=== PATIENT | female | born 1970 | race Caucasian/White ===

== ENCOUNTER 2017-09-09 05:01 | Inpatient (IN) | payer OTHER ==
[2017-09-09 05:44] LABS: URINE MICROSCOPIC INDICATED? YES; URINE SOURCE RANDOM
[2017-09-09 05:53] LABS: URINE BILIRUBIN NEGATIVE (NEGATIVE); URINE BLOOD LARGE (NEGATIVE); URINE GLUCOSE (UA) NEGATIVE (NEGATIVE); URINE KETONE NEGATIVE (NEGATIVE); URINE LEUKOCYTE ESTERASE NEGATIVE (NEGATIVE); URINE NITRATE NEGATIVE (NEGATIVE); URINE PROTEIN 30 mg/dL (NEGATIVE); URINE UROBILINOGEN 0.2 E.U./dL (0.2 - 1.0)
[2017-09-09 06:00] LABS: URINE CLARITY HAZY (CLEAR); URINE COLOR YELLOW
[2017-09-09 06:01] LABS: HEMATOCRIT 28.5 % (41.0-60); HEMOGLOBIN 8.5 gm/dL (12-16); MEAN CORPUSCULAR HEMOGLOBIN 18.3 pg (27.0-31.0); MEAN CORPUSCULAR HGB CONC 29.7 pg (28.0-36.0); MEAN PLATELET VOLUME 8.1 fl; PLATELET COUNT 349 Th/cmm (150-400); RED BLOOD COUNT 4.62 Mil/cmm (3.80-5.10); RED CELL DISTRIBUTION WIDTH 18.7 % (11.5-20.0)
[2017-09-09 06:04] LABS: MEAN CELL VOLUME 61.7 fl (81-100); WHITE BLOOD COUNT 6.5 Th/cmm (4.8-10.8)
[2017-09-09 06:13] LABS: ANION GAP 8.7 (7.0-16.0); BUN - UREA NITROGEN 14 mg/dL (7-25); CALCIUM SERUM 10.4 mg/dL (8.6-10.3); CARBON DIOXIDE 23.6 mEq/L (21.0-31.0); CHLORIDE 110 mEq/L (98-107); CREATININE - SERUM 0.7 mg/dL (0.6-1.2); GFR AFRICAN-AMERICAN > 60.0 ml/min (>90); GFR NON AFRICAN-AMERICAN > 60.0 ml/min; GLUCOSE 117 mg/dL (70-105); POTASSIUM SERUM 4.3 mEq/L (3.5-5.1); SODIUM SERUM 138 mEq/L (136-145)
[2017-09-09 06:15] LABS: URINE BACTERIA MODERATE /hpf (NONE SEEN); URINE EPITHELIAL CELLS MANY /lpf (FEW)
--- NOTE | 2017-09-09 07:20 | ED Physician Chart ---
ED Chief Complaint/HPI - Patient Information Date Seen:: 09/09/17 Time Seen:: 07:05 Chief Complaint:: left-sided back pain History of Present Illness:: Patient had onset yesterday of left low back pain. She vomited once at 0500 this morning. No diarrhea. No fever. Patient apparently has a history of scoliosis and has been treated recently for midline low back pain. Allergies:: Allergies Allergy/AdvReac Type Severity Reaction Status Date / Time No Known Allergies Allergy Verified 06/21/16 22:18 Vitals:: Vital Signs - 8 hr 09/09/17 05:05 Temp 97.5 F HR 75 RR 18 BP 152/73 O2 Sat % 97 Historian:: Patient Review:: Nurse's Note Reviewed <Shiva Wolff - Last Filed: 09/09/17 07:15> - Patient Information Allergies:: Allergies Allergy/AdvReac Type Severity Reaction Status Date / Time No Known Allergies Allergy Verified 06/21/16 22:18 Vitals:: Vital Signs - 8 hr 09/09/17 09/09/17 05:05 07:20 Temp 97.5 F 97.2 F HR 75 89 RR 18 16 BP 152/73 146/81 O2 Sat % 97 99 <Henry Rojas - Last Filed: 09/09/17 12:31> ED Review of Systems - Review of Systems General/Constitutional: No fever, No chills Skin: No skin lesions Head: No headache Eyes: No loss of vision ENT: No earache Neck: No neck pain, No swelling Cardio Vascular: No chest pain, No palpitations Pulmonary: No SOB GI: Nausea, Vomiting G/U: No dysuria, No hematuria Musculoskeletal: Back pain Endocrine: No polyuria, No polydipsia Psychiatric: No prior psych history Hematopoietic: No bruising Allergic/Immuno: No urticaria Neurological: No syncope <Shiva Wolff - Last Filed: 09/09/17 07:15> ED Past Medical History - Past Medical History Past Medical History: No significant medical hx, Other (heavy menstrual periods for last 10 years) Family History: Diabetes Melitus, HTN Social History: Smoker, No Alcohol, Other Employment:: smokes 5-6 cigarets per day Surgical History: Cholecystectomy, Psychiatricy History: None Medication: None <Shiva Wolff - Last Filed: 09/09/17 07:15> Family Medical History - Family Member Mother Ethnicity: <Shiva Wolff - Last Filed: 09/09/17 07:15> ED Physical Exam - Physical Examination General/Constitutional: Well-developed, well-nourished, Alert, No distress Head: Atraumatic Eyes: Lids, conjuctiva normal Skin: Nl inspection, No rash ENMT: External ears, nose nl Neck: No nuchal rigidity Respiratory: Nl effort/Exclusion, Clear to Auscultation, No Wheeze/Rhonchi/Rales Cardio Vascular: RRR, No murmur, gallop, rubs GI: No tenderness/rebounding/guarding, No organomegaly, No hernia, Normal BS's Other Extremities comments:: straight leg raising of 90 degrees bilaterally Neuro/Psych: No focal deficits Other Misc comments:: left CVA tenderness <Shiva Wolff - Last Filed: 09/09/17 07:15> ED Labs/Radiology/EKG Results - Lab Results Results: Laboratory Tests 09/09/17 09/09/17 09/09/17 05:17 05:18 05:50 WBC 6.5 D RBC 4.62 Hgb 8.5 L Hct 28.5 L MCV 61.7 L MCH 18.3 L MCHC Differential 29.7 RDW 18.7 Plt Count 349 MPV 8.1 Sodium Potassium Chloride Carbon Dioxide Anion Gap BUN Creatinine Est GFR ( Amer) Est GFR (Non-Af Amer) BUN/Creatinine Ratio Glucose Calcium Urine Source RANDOM Urine Color YELLOW Urine Clarity HAZY Urine pH 5.0 Ur Specific [place] >= 1.030 Urine Protein 30 H Urine Glucose (UA) NEGATIVE Urine Ketones NEGATIVE Urine Blood LARGE H Urine Nitrate NEGATIVE Urine Bilirubin NEGATIVE Urine Urobilinogen 0.2 Ur Leukocyte Esterase NEGATIVE Urine RBC 2-5 Urine WBC 2-5 Ur Epithelial Cells MANY Calcium Oxalate Crystal MODERATE Urine Bacteria MODERATE H POC Ur Test Negative 09/09/17 05:50 WBC RBC Hgb Hct MCV MCH MCHC Differential RDW Plt Count MPV Sodium 138 Potassium 4.3 Chloride 110 H Carbon Dioxide 23.6 Anion Gap 8.7 BUN 14 Creatinine 0.7 Est GFR ( Amer) > 60.0 Est GFR (Non-Af Amer) > 60.0 BUN/Creatinine Ratio 20.0 Glucose 117 H Calcium 10.4 H Urine Source Urine Color Urine Clarity Urine pH Ur Specific [place] Urine Protein Urine Glucose (UA) Urine Ketones Urine Blood Urine Nitrate Urine Bilirubin Urine Urobilinogen Ur Leukocyte Esterase Urine RBC Urine WBC Ur Epithelial Cells Calcium Oxalate Crystal Urine Bacteria POC Ur Test <Shiva Wolff - Last Filed: 09/09/17 07:15> - Lab Results Results: Laboratory Tests 09/09/17 09/09/17 09/09/17 05:17 05:18 05:50 WBC 6.5 D RBC 4.62 Hgb 8.5 L Hct 28.5 L MCV 61.7 L MCH 18.3 L MCHC Differential 29.7 RDW 18.7 Plt Count 349 MPV 8.1 Band Neutrophils % 0 Neutrophils (Manual) 75 Lymphocytes 15 L Monocytes 6 Eosinophils 4 Hypochromia 1+ Platelet Estimate ADEQUATE Anisocytosis 1+ Microcytosis 3+ Sodium Potassium Chloride Carbon Dioxide Anion Gap BUN Creatinine Est GFR ( Amer) Est GFR (Non-Af Amer) BUN/Creatinine Ratio Glucose Calcium Urine Source RANDOM Urine Color YELLOW Urine Clarity HAZY Urine pH 5.0 Ur Specific [place] >= 1.030 Urine Protein 30 H Urine Glucose (UA) NEGATIVE Urine Ketones NEGATIVE Urine Blood LARGE H Urine Nitrate NEGATIVE Urine Bilirubin NEGATIVE Urine Urobilinogen 0.2 Ur Leukocyte Esterase NEGATIVE Urine RBC 2-5 Urine WBC 2-5 Ur Epithelial Cells MANY Calcium Oxalate Crystal MODERATE Urine Bacteria MODERATE H POC Ur Test Negative 09/09/17 05:50 WBC RBC Hgb Hct MCV MCH MCHC Differential RDW Plt Count MPV Band Neutrophils % Neutrophils (Manual) Lymphocytes Monocytes Eosinophils Hypochromia Platelet Estimate Anisocytosis Microcytosis Sodium 138 Potassium 4.3 Chloride 110 H Carbon Dioxide 23.6 Anion Gap 8.7 BUN 14 Creatinine 0.7 Est GFR ( Amer) > 60.0 Est GFR (Non-Af Amer) > 60.0 BUN/Creatinine Ratio 20.0 Glucose 117 H Calcium 10.4 H Urine Source Urine Color Urine Clarity Urine pH Ur Specific [place] Urine Protein Urine Glucose (UA) Urine Ketones Urine Blood Urine Nitrate Urine Bilirubin Urine Urobilinogen Ur Leukocyte Esterase Urine RBC Urine WBC Ur Epithelial Cells Calcium Oxalate Crystal Urine Bacteria POC Ur Test Comments:: Ca+: 10.4; H/H:8.5/28.5; U/A: + Pyuria; + Hematuria - Radiology Results Comments:: + left Ureteral Calculus; + Left [place] Ureter and Left Hydronephrosis; + nonobstructive renal calculi <Henry Rojas - Last Filed: 09/09/17 12:31> ED Septic Shock - <6hrs of presentation: Vital Signs: Vital Signs - 8 hr 09/09/17 05:05 Temp 97.5 F HR 75 RR 18 BP 152/73 O2 Sat % 97 <Shiva Wolff - Last Filed: 09/09/17 07:15> - . Is Septic Shock (SBP<90, OR Lactate>4 mmol\L) present?: No - <6hrs of presentation: Vital Signs: Vital Signs - 8 hr 09/09/17 09/09/17 05:05 07:20 Temp 97.5 F 97.2 F HR 75 89 RR 18 16 BP 152/73 146/81 O2 Sat % 97 99 <Henry Rojas - Last Filed: 09/09/17 12:31> ED Reassessment (Disposition) - Reassessment Reassessment:: patient's pain improved after toradol 60 mg IM Reassessment Condition:: Improved - Diagnosis Diagnosis:: low back pain - Patient Disposition Discharge/Transfer:: Home <Shiva Wolff - Last Filed: 09/09/17 07:15> - Reassessment Reassessment Condition:: Improved - Diagnosis Diagnosis:: Nephrolithiasis; UTI; Hypercalcemia; Anemia; Hematuria; Hydronephrosis; Diverticulosis; Flank Pain; Dehydration - Aftercare/Follow up Instructions Aftercare/Follow-Up Instructions:: Counseled pt regarding lab results/diagnosis & need follow up, Counseled pt & family regarding lab results/diagnosis & need follow up - Patient Disposition Discharge/Transfer:: Acute Care w/in this hosp Accepting Physician:: Dr. Gurrola Time Called:: 0700 Time Responded:: 07:00 Admitted to:: Telemetry Spoke to:: Dr. Gurrola Admitting Medical Physician:: Dr. Gurrola Condition at Disposition:: Stable, Improved <Henry Rojas - Last Filed: 09/09/17 12:31>
[2017-09-09 07:31] LABS: BAND NEUTROPHILE 0 % (0-10); EOSINOPHIL 4 % (0-5); LYMPHOCYTE 15 % (20-50); MONOCYTE 6 % (2-10); NEUTROPHILS 75 % (40-80); PLATELET ESTIMATE ADEQUATE (NORMAL); TOTAL CELLS COUNTED 100
[2017-09-09 07:32] LABS: ANISOCYTOSIS 1+; HYPOCHROMIA 1+
--- NOTE | 2017-09-09 08:37 | Diagnostic Imaging Report ---
CT abdomen and pelvis without intravenous contrast Indication: Flank pain Comparison: None, Technique: Axial images were obtained from the lung bases to the bilateral proximal femurs without IV contrast. Coronal reconstructions were made. total DLP: [id number], CTDI14.1 FINDINGS: Hypoventilatory atelectatic changes of the lung bases are noted. Assessment of the solid organs is limited due to lack of IV contrast. No evidence of focal hepatic lesions. The patient is status post cholecystectomy. No focal splenic, pancreatic, or adrenal lesions. Bilateral nonobstructive renal calculi are noted the largest on the left measuring 3 mm and the largest on the right also measuring 3 mm. There is a calculus which measures 6 mm craniocaudally in the proximal left ureter causing mild to moderate left hydroureter and left hydronephrosis with associated surrounding inflammatory changes. There is a 6 x 4 cm lobulated left adnexal cystic lesion. Indeterminate 1 cm low-density lesion of the uterus is noted. Bulbous uterus is also noted. Colonic diverticulosis is noted without evidence of diverticulitis. No evidence of appendicitis. No evidence of free fluid or free air. Mild atherosclerotic vascular disease is noted. Degenerative change lower lumbar spine and SI joints are noted. There appears to be transitional vertebral body anatomy IMPRESSION: 6 mm stone seen within the proximal left ureter causing mild to moderate left hydroureter and left hydronephrosis with associated surrounding inflammatory changes. Please correlate with clinical findings. Additional nonobstructive bilateral renal calculi. 6 x 4 cm left adnexal lobulated cystic lesion. Given patient's age, ultrasound is recommended for further assessment to exclude cystic neoplastic process. Heterogeneous bulbous uterus with low-density focus. Findings may be due to fibroid changes. Again ultrasound further clarify Colonic diverticulosis without evidence of diverticulitis. Evidence of prior cholecystectomy.
[2017-09-09] MEDS ORDERED: cefTRIAXone 1 GM in Sodium Chloride 0.9% 50 ML IV ONE (09:43)
[2017-09-09] MEDS ORDERED: Sodium Chloride 0.9% 1,000 ML IV ONE (09:44)
[2017-09-09] MEDS ORDERED: Morphine Sulfate 2 mg/mL 1mL Syr IV STA (10:50)
[2017-09-09] MEDS ORDERED: Morphine Sulfate 2 mg/mL 1mL Syr ONE (10:53)
[2017-09-09] MEDS ORDERED: Sodium Chloride 0.9% 1,000 ML IV SCH (13:40)
[2017-09-09] MEDS ORDERED: Morphine Sulfate 2 mg/mL 1mL Syr IM PRN (13:40)
--- NOTE | 2017-09-09 14:34 | Diagnostic Imaging Report ---
CHEST X-RAY: AP view INDICATION: Cerebrovascular accident COMPARISON: 06/21/2016 FINDINGS: There is no focal consolidation or pleural effusions The heart is normal in size. The osseous structures demonstrate no acute abnormalities. IMPRESSION: No focal acute pulmonary process.
[2017-09-09] MEDS: Cefepime 1 GM in Sodium Chloride 0.9% 50 ML IV SCH (22:57)
--- NOTE | 2017-09-10 02:20 | History & Physical ---
ADMIT DATE: 09/09/2017 CHIEF COMPLAINT: Left-sided abdominal pain. HISTORY OF PRESENT ILLNESS: This is a 47-year-old female who was brought to Emergency Room for left-sided abdominal pain that started this morning associated with nausea and vomiting. Had a CT of abdomen and pelvis and suggestive of left hydroureter with left hydronephrosis. The patient admitted for further treatments. The patient denies any associated fever, no chills, no dysuria or hematuria. No constipation or diarrhea. Had prior history of kidney stone in the past. PAST MEDICAL HISTORY: Kidney stones. PAST SURGICAL HISTORY: Denies. FAMILY HISTORY: Denies. SOCIAL HISTORY: Denies any alcohol, tobacco, or street drug use. HOME MEDICATIONS: None. REVIEW OF SYSTEMS: A 12-point system appears negative. PHYSICAL EXAMINATION: VITAL SIGNS: Temperature 97.8, pulse 64, respirations 18, and blood pressure 121/43. Pain 0/10. GENERAL APPEARANCE: The patient does not seem in acute distress. CARDIOVASCULAR: S1, S2 normal. LUNGS: Clear to auscultation bilaterally. ABDOMEN: Soft, nontender NEUROLOGIC: Alert, follows commands, no focal deficits. EXTREMITIES: No edema noted. ASSESSMENT: 1. Left ureteral stone. 2. Left hydronephrosis. PLAN: The patient is admitted to [facility], was started on IV fluid, Flomax, and IV antibiotics. Urology was consulted. We will follow up on the further urology recommendations that will be given. Discussed with patient and family at the bedside regarding the patient's conditions and plan of care. [facility]# [id number]
[2017-09-10 06:26] LABS: INR 1.09 (0.5-1.4); PROTHROMBIN TIME (TEST) 11.3 SECONDS (9.5-11.5)
[2017-09-10 06:30] LABS: ALB/GLOB RATIO 2.1 (1.0-1.8); ALBUMIN 3.6 gm/dL (3.7-5.3); ALKALINE PHOSPHATASE 73 U/L (34-104); ANION GAP 7.4 (7.0-16.0); BILIRUBIN,TOTAL 0.2 mg/dL (0.3-1.0); BUN - UREA NITROGEN 17 mg/dL (7-25); CALCIUM SERUM 9.7 mg/dL (8.6-10.3); CARBON DIOXIDE 22.9 mEq/L (21.0-31.0); CHLORIDE 111 mEq/L (98-107); CREATININE - SERUM 0.6 mg/dL (0.6-1.2); GFR AFRICAN-AMERICAN > 60.0 ml/min (>90); GFR NON AFRICAN-AMERICAN > 60.0 ml/min; GLUCOSE 112 mg/dL (70-105); POTASSIUM SERUM 4.3 mEq/L (3.5-5.1); SGOT 13 U/L (13-39); SGPT/ALT 11 U/L (7-52); SODIUM SERUM 137 mEq/L (136-145); TOTAL PROTEIN,SERUM 5.3 gm/dL (6.0-8.3)
[2017-09-10] MEDS ORDERED: Influenza Vaccine 0.5 mL Syr IM ONE (09:00)
[2017-09-10] MEDS: Cefepime 1 GM in Sodium Chloride 0.9% 50 ML IV SCH (09:07)
== END 2017-09-10 11:30 | disposition left against medical advice (07) | DRG 694 ==
LOC: ER 05:01 → MSI 12:27
PROVIDERS: ADMIT Family Medicine; ATTEND Family Medicine
DX: N13.2 Hydronephrosis with renal and ureteral calculous obstruction (principal); E83.52 Hypercalcemia; F17.210 Nicotine dependence, cigarettes, uncomplicated; N39.0 Urinary tract infection, site not specified; D64.9 Anemia, unspecified; E86.0 Dehydration; R31.9 Hematuria, unspecified; K57.30 Diverticulosis of large intestine without perforation or abscess without bleeding
CPT/HCPCS: 36415-UA; 71045-TC; 80048-TC; 80053-TC; 81001-TC; 81025-TC; 84703-TC; 85007-TC; 85027-TC; 85610-TC; 87086-90; J0692; J0696; J1885; J2270; J3480; J7030; Z7610